=== PATIENT | male | born 1960 | race Caucasian/White ===

== ENCOUNTER 2020-05-16 15:28 | Emergency (ER) | payer MEDICAID ==
[~2020-05-16] VITALS: Ht 182.9 cm; Wt 81.8 kg
[2020-05-16] MEDS ORDERED: HYDROcodone/acetaminophen 10/325mg tab PO STA (15:39)
[2020-05-16] MEDS ORDERED: ondansetron 4mg rapidly disintigrating tab PO ONE (15:40)
[2020-05-16] MEDS ORDERED: LIDOcaine 1% W/epiNEPHrine 1:200,000 10ml vial IJ ONE (15:50)
[2020-05-16] MEDS ORDERED: TETanus/Pertussis (Acell)/Diphther VAC/PF (Tdap-Adult) 0.5ml syringe IMVAC ONE (15:50)
[2020-05-16] MEDS ORDERED: ondansetron/PF 4mg/2ml inj IV ONE (16:05)
[2020-05-16] MEDS ORDERED: morphine 4 MG/ML inj SYRINge IV ONE (16:05)
[2020-05-16] MEDS ORDERED: LORazepam 2 mg/ml vial IV ONE (16:05)
[2020-05-16] MEDS ORDERED: normal saline 1000ml 1,000 ML IV ONE (18:50)
[2020-05-16] MEDS ORDERED: ceFAZolin 1GM/D5W- ADD-VANTAGE 50 ML IV ONE (19:15)
[2020-05-16] MEDS ORDERED: ceFAZolin/D5W- 1GM premix 50 ML IV ONE (19:20)
[2020-05-16] MEDS ORDERED: CEPH250T PO (19:28)
[2020-05-16 21:12] VITALS: BP 120/80
== END 2020-05-16 21:15 | disposition home or self-care (01) ==
LOC: ER 15:30
DX: S81.812A Laceration without foreign body, left lower leg, initial encounter (principal); F17.200 Nicotine dependence, unspecified, uncomplicated; Z79.899 Other long term (current) drug therapy; W18.39XA Other fall on same level, initial encounter; Y93.89 Activity, other specified; Y92.89 Other specified places as the place of occurrence of the external cause; Y99.8 Other external cause status
CPT/HCPCS: 12035; 73590; 90471; 90715; 96361; 96365; 96375; 99284; J0690; J2060; J2270; J2405; J7030

== ENCOUNTER 2020-11-29 16:53 | Emergency (ER) | payer MEDICAID ==
[~2020-11-29] VITALS: Ht 182.9 cm; Wt 77.3 kg
[2020-11-29] MEDS ORDERED: ketorolac tromethamine 15mg/ml inj. IV ONE (18:40)
[2020-11-29] MEDS ORDERED: normal saline 1000ML IV soln IVB ONE (18:40)
[2020-11-29 19:27] LABS: ALANINE AMINOTRANSFERASE 23 U/L (12-78); ALBUMIN 2.9 G/DL (3.4-5.0); ALBUMIN/GLOBULIN RATIO 0.9 (1.1-1.5); ALKALINE PHOSPHATASE 85 IU/L (46-116); ANION GAP 9 (8-16); ASPARTATE AMINO TRANSFERASE 27 U/L (10-37); BILIRUBIN,TOTAL 0.3 MG/DL (0.1-1.0); BLOOD UREA NITROGEN 14 MG/DL (7-18); CALCIUM 8.2 MG/DL (8.5-10.1); CHLORIDE 101 MMOL/L (99-107); GLUCOSE 108 MG/DL (70-104); MAGNESIUM 1.7 MG/DL (1.5-2.4); POTASSIUM 4.1 MMOL/L (3.5-5.1); SODIUM 135 MMOL/L (135-145); TOTAL CARBON DIOXIDE 25.1 MMOL/L (24-32); TOTAL PROTEIN 6.3 G/DL (6.4-8.2); eGFR 77 ML/MIN
[2020-11-29 19:53] LABS: MEAN CORPUSCULAR HGB CONC 34.2 g/dL (33.0-36.5); PLATELET COUNT 163 X10'3 (140-440); WHITE BLOOD COUNT 3.7 X10'3 (4.5-11.0)
[2020-11-29 19:55] LABS: BASOPHILS % (AUTO) 0.3 % (0-1); EOSINOPHILS % (AUTO) 0 % (0-6); HEMATOCRIT 46.8 % (42.0-52.0); LYMPHOCYTES # (AUTO) 0.7 X10'3 (1.1-4.8); LYMPHOCYTES % (AUTO) 20.1 % (21-51); MEAN CORPUSCULAR HEMOGLOBIN 32.3 PG (27.0-31.0); MEAN CORPUSCULAR VOLUME 94.5 FL (78-98); MEAN PLATELET VOLUME 7.5 FL (7.4-10.4); MONOCYTES # (AUTO) 0.4 X10'3 (0-0.9); NEUTROPHILS # (AUTO) 2.6 X10'3 (1.8-7.7); NEUTROPHILS % (AUTO) 69.6 % (42-75); RED BLOOD COUNT 4.96 X10'6 (4.70-6.10); RED CELL DISTRIBUTION WIDTH 13.3 % (11.5-14.5)
[2020-11-29 20:37] VITALS: BP 110/69
--- NOTE | 2020-11-29 20:37 | NUR ---
PT TO LEFT HIP AND LEFT LEG 2-3 OUT OF 10. PT UPDATED THAT UA STILL NEEDED. HE REPORTS HE WILOL TRY SHORTLY. VSS
[2020-11-29] MEDS ORDERED: IBUP-1985 PO (20:56)
== END 2020-11-29 21:35 | disposition home or self-care (01) ==
LOC: ER 16:53
DX: M54.32 Sciatica, left side (principal); D72.819 Decreased white blood cell count, unspecified; F17.200 Nicotine dependence, unspecified, uncomplicated; Z79.899 Other long term (current) drug therapy
CPT/HCPCS: 36415; 71045; 72100; 73502; 80053; 83605; 83735; 84145; 85025; 87040; 93005; 96361; 96374; 99285; J1885; J7030

== ENCOUNTER 2024-06-27 16:02 | Emergency (ER) | payer MEDICAID ==
[~2024-06-27] VITALS: Ht 182.9 cm; Wt 71.3 kg
[~2024-06-27 16:02] MED LIST: IBUP-1985 PO
[2024-06-27] MEDS ORDERED: ERYT1OIN6 EACHEYE (17:01)
[2024-06-27] MEDS: acetaminophen 325mg tablet PO ONE (17:06)
[2024-06-27] MEDS: ibuprofen tablet 400 MG TABLET PO ONE (17:06)
[2024-06-27 17:13] VITALS: BP 130/86; PULSE 73; RESP 16; TEMP 98; O2SAT 98
== END 2024-06-27 17:09 | disposition home or self-care (01) ==
LOC: ER 16:03
DX: H10.89 Other conjunctivitis (principal)
CPT/HCPCS: 99283

== ENCOUNTER 2024-09-29 09:16 | Outpatient (CLI) | payer MEDICAID ==
--- NOTE | 2024-09-29 17:19 | RADIOLOGY REPORT ---
EXAM: MR MRI UPPER EXTREMITY RIGHT INDICATION: PAIN IN RIGHT SHOULDER, PRIMARY OSTEOARTHRITIS R SHLDR TECHNIQUE: Multiplanar, multisequence MR images of the right shoulder were obtained in the absence of gadolinium contrast material. COMPARISON: None FINDINGS: [CORACOACROMIAL ARCH]: Moderate degenerative change of the acromioclavicular joint. Intact coracoclav icular ligaments. Intact coracoacromial ligaments. No subacromial/subdeltoid bursal fluid. [ROTATOR CUFF]: Mild tendinosis of the superior rotator cuff. Insertional subcortical cysts of the lea perolateral aspect of the humeral head. [BICEPS TENDON]: Small amount of intermediate signal intensity and thickening of the intra-articular segment, long head of the biceps tendon. Small amount of fluid along the biceps tendon sheath with tr subhash internal synovitis. Correlate for biceps tenosynovitis and/or sequelae of adhesive capsulitis. [LABRUM]: Thickening and areas of tearing of the posterior labrum, likely degenerative. [CARTILAGE]: Full-thickness cartilage loss, broad-based of the superior medial humeral head. Diffuse cartilage thinning and near full-thickness cartilage loss of the medial humeral head and glenoid. [GLENOHUMERAL JOINT]: Small glenohumeral joint effusion. No discrete intra-articular body. [BONES]: No acute fracture, osseous contusion, or aggressive focal osseous lesion. [MUSCLES]: Normal muscle bulk of the rotator cuff muscles. [NEUROVASCULAR/LYMPH NODES]: Normal. [OTHER]: None. IMPRESSION: 1. Severe degenerative change of the right glenohumeral joint. 2. Mild tendinosis of the superior rotator cuff without full-thickness tear. 3. Biceps tenosynovitis and/or adhesive capsulitis.
== END 2024-09-29 23:59 | disposition home or self-care (01) ==
LOC: MRI02 09:16
PROVIDERS: ATTEND Specialist
DX: M19.011 Primary osteoarthritis, right shoulder (principal); M25.511 Pain in right shoulder; M75.101 Unspecified rotator cuff tear or rupture of right shoulder, not specified as traumatic; M94.8X1 Other specified disorders of cartilage, shoulder
CPT/HCPCS: 73221